=== PATIENT | female | born 1980 | race Caucasian/White ===

== ENCOUNTER 2023-12-03 14:27 | Emergency (ER) | payer BC, SELFPAY ==
[2023-12-03 14:33] VITALS: BP 156/95
--- NOTE | 2023-12-03 16:15 | ED.GENMED ---
History of Present Illness
General
Chief Complaint: Headache
Source: patient
Time Seen by Provider: 12/03/23 15:59
History of Present Illness
History of Present Illness:
This patient is a 43-year-old female whose had a headache for almost 2 weeks. It for started last week on Wednesday, gradual in onset, noticed in the bifrontal area, and then got progressively worse such that she described it as a 'migraine', typical
for her, by . She describes it as a 'pressure',. She took the usual medications that she takes with the migraine such as sumatriptan, Excedrin, etc. She states that these medications never worked for her anyway and she usually just needs
to wait it out. She went to the urgent care on Wednesday and was given steroids and Toradol without relief of symptoms. She saw her family doctor Wednesday who gave her the option of a CAT scan versus neurology follow-up. She was referred to the
emergency department today for a CAT scan by her primary care doctor, as per patient, after recognizing that a specific referral was not needed. Patient denies recent trauma or falls, neck pain or stiffness, fever, chills, photophobia, rash,
nausea, vomiting, change in vision, change in speech, change in balance. The headache is bifrontal, nonradiating, and has been improving. Her last menstrual cycle began 2 weeks ago.
Past History
Past History
ED Past Medical History: Other (ADHD, 'heartburn', migraines, endometriosis)
Social History
Tobacco: Non-smoker
Drug: None
Personal: Single
Living: alone
Phy Exam
Physical Exam
Physical Exam:
GENERAL: Alert , in no apparent distress
EYE: pupils equal and reactive, EOMI, no nystagmus, no photophobia
NECK: Supple, no significant adenopathy.
ENT: o/p clr, mmm.
CARDIAC: Regular rate and rhythm .
LUNGS: Clear breath sounds bilaterally, no acute respiratory distress,
ABDOMEN: Soft, without focal tenderness, no r/g, no cvat
NEUROLOGICAL: Alert and oriented, no focal neuro deficits, motor 5/5, sens intact, fundoscopic wnl, visual rizzo intact, gait wnl, Cranial nerves II through XII intact, [id number] normal
SKIN: Warm and dry, skin intact.
MUSCULOSKELETAL: No edema, well perfused.
PSYCH: Normal and appropriate interaction.
Course
Orders/Labs/Results
Orders:
Orders
12/03/23 16:14
CT Head W/o Iv Contrast Urgent
Comment:
Reason For Exam: devlin
Vital Signs
Initial and Last Documented VS:
Initial Vital Signs
Temp Pulse Resp BP Pulse Ox
98.2 F 100 18 156/95 99
12/03/23 14:33 12/03/23 14:33 12/03/23 14:33 12/03/23 14:33 12/03/23 14:33
Last Documented Vital Signs
Temp Pulse Resp BP Pulse Ox
98.2 F 100 18 156/95 99
12/03/23 14:33 12/03/23 14:33 12/03/23 14:33 12/03/23 14:33 12/03/23 14:33
Update Note
Update Note:
Patient presents to the Emergency Department with hA
Number and Complexity of Problems Addressed at the Encounter
� Chronic conditions affecting care:
� Acute Exacerbation and/or Progression of Chronic Illness:
� Differential Diagnosis includes: but not limited to migraine, tension devlin, nonspec cephalgia, hypertension related h/a, etc. etc.
Amount and/or Complexity of Data to be Reviewed and Analyzed
� I performed an independent evaluation of and my interpretation is:
EKG:
CT: Vanessa read IMPRESSION:
1. No CT evidence for acute intracranial disease.
2. 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
Xrays:
Laboratory Studies:
Other:
� Review of other/old records reveals:
� Clinical information was obtained by an independent historian:
� Prescriptions/Medications Considered but not given:
� Further testing considered but not performed:
Risk of Complications and/or Morbidity or Mortality of Patient Management
� Social determinants of health affecting care:
� Discussion with other providers (PCP, Hospitalists, Consultants, etc):
� Escalation of care including admission/observation vs risk of discharge considerePatient overall well-appearing. She declines medication for pain at this time.
[address] with incidental finding, pt made aware. encourage neuro f/u. d/w pt import of f/u and raseons to rted. do not identify 'red flag' findings in hphx to suggest more worrisome etiology, ex not sudden onset, no worst of life, no infectious
findings, neuro examnl, etc. Suspect migraine related.
ED Attending Note
-
Portions of this chart may have been created with voice recognition software.� Occasional wrong word or��sound alike� substitutions may have occurred due to the inherent limitations of voice recognition software.
Discharge Plan
Departure
Patient Disposition: Home (Routine Discharge)
Date of Disposition: 12/03/23
Time of Disposition: 16:51
Patient with high blood pressure during this ER visit?: Yes
Condition: Good
Discharge Problem:
Headache
Instructions: Migraines (DC), BLOOD PRESSURE
Activity Restrictions/Additional Instructions:
PLEASE SEE YOUR DOCTOR IN CLOSE FOLLOW UP. IF YOU DEVELOP DIZZINESS, FEVER, NECK PAIN, INCREASING/NEW/PERSISTENT HEADACHE, VOMITING, CHANGE IN VISION/SPEECH OR BALANCE, OR OTHER WORRISOME SIGNS, GO TO THE ER IMMEDIATELY!
Interventions
Interventions:
*Risk Screen - Suicide Last Done: 12/03/23 14:29
*General Assessment Last Done: 12/03/23 14:33
Discharge Date and Time
Print Language: CZECH
[2023-12-03 18:00] VITALS: BP 133/90
[2023-12-03 18:20] VITALS: BP 133/90
== END 2023-12-03 18:20 | disposition home or self-care (01) ==
LOC: EMR 14:27
PROVIDERS: EMERGENCY PHYSICIAN Emergency Medicine; FAMILY PHYSICIAN Nurse Practitioner Family
DX: R51.9 Headache, unspecified (principal); F90.9 Attention-deficit hyperactivity disorder, unspecified type; N80.9 Endometriosis, unspecified
CPT/HCPCS: 99284; 70450

== ENCOUNTER 2024-04-09 19:28 | Emergency (ER) | payer BC, SELFPAY ==
[2024-04-09 19:32] VITALS: BP 132/98
[2024-04-09 20:25] VITALS: BMI 26.3
[2024-04-09 20:52] LABS: COVID-19 Antigen Negative (Negative)
--- NOTE | 2024-04-09 20:55 | ED.GENMED ---
History of Present Illness
<STACIE Adams - Last Filed: 04/09/24 21:12>
General
Chief Complaint: Headache
Source: patient
Exam Limitations: none
Time Seen by Provider: 04/09/24 20:42
History of Present Illness
History of Present Illness:
This is a 43 year old female that comes in with c/o headache. States that she started with a migraine 3 days ago and she just can't get rid of this. States that she started to feel sick on Wednesday with a sore throat, cough and sneezing, runny nose
ad her ear hurt. States that yesterday she was freezing and also today. States that her chest feels heavy and that her Migraines have been ramping up over the past year. States that right now it is across the forehead. States that she has felt
nauseated with the headache and lightheaded. Denies any fever, chills, chest pain, SOB, abd pain, vomiting, diarrhea, urinary burning.
Past History
<STACIE Adams - Last Filed: 04/09/24 21:12>
Past History
ED Past Medical History: Hypercholesterolemia, Psychiatric (Depression) and Other (ADHD, 'heartburn', migraines, endometriosis)
ED Past Surgical History: None
Social History
Tobacco: Non-smoker
Alcohol: None
Drug: None
Personal: Single
Living: alone
Review of Systems
<STACIE Adams - Last Filed: 04/09/24 21:12>
Review of Systems
All Other Systems: ROS reviewed and negative except as documented in HPI and ROS
Constitutional: Reports no symptoms; Denies fever or chills
EENT: Reports no symptoms
Respiratory: Reports cough; Denies trouble breathing
Cardiac: Reports no symptoms; Denies chest pain
ABD/GI: Reports nausea and vomiting; Denies abdominal pain or diarrhea
: Reports no symptoms; Denies dysuria, frequency or urgency
Musculoskeletal: Reports no symptoms
Skin: Reports no symptoms
Neurological: Reports headache and other (Lightheaded); Denies dizzy
Psychiatric: Reports no symptoms
Phy Exam
<STACIE Adams - Last Filed: 04/09/24 21:12>
General Physical Exam
General Presentation: no apparent distress
General age: appears stated age
General Skin: warm and dry
General Habitus: normal
General Mental: alert
General Hydration: appears well hydrated
ENT Exam
ENT Exam: TM's normal, pharynx normal and neck supple
Eye Exam
Eye Exam: EOMI
Cardiovascular Exam
Cardiovascular Exam: regular rate/rhythm, no edema, no murmur and normal peripheral pulses
Pulmonary Exam
Pulmonary Exam: lungs clear, no respiratory distress, no rales, chest non tender, no crackles, no rhonchi, no wheezing and no cough
Gastrointestinal Exam
Gastrointestinal Exam: normal bowel sounds, non tender, soft, no organomegaly, no pulsatile mass and non distended
Musculoskeletal Exam
Musculoskeletal Exam: full ROM and no edema
Skin Exam
Skin Exam: normal color, warm/dry, no rash and no petechia
Psychiatric Exam
Psychiatric Exam: normal mood/affect
Course
<STACIE Adams - Last Filed: 04/09/24 21:12>
Orders/Labs/Results
Orders:
Orders
04/09/24 20:31
COVID-19 Antigen Urgent
Source: Nasal Swab
Influenza A+B Rapid Molecular Urgent
LISBET Source: Nasal Swab
Specimen Description:
04/09/24 21:03
Acetaminophen [Tylenol] 1,000 mg PO NOW STA
Ibuprofen [Motrin] 600 mg PO NOW STA
COVID negative. Influenza A positive
Vital Signs
Initial and Last Documented VS:
Initial Vital Signs
Temp Pulse Resp BP Pulse Ox
99.9 F 110 20 132/98 100
04/09/24 19:32 04/09/24 19:32 04/09/24 19:32 04/09/24 19:32 04/09/24 19:32
Last Documented Vital Signs
Temp Pulse Resp BP Pulse Ox
99.9 F 110 20 132/98 100
04/09/24 19:32 04/09/24 19:32 04/09/24 19:32 04/09/24 19:32 04/09/24 19:32
<Savannah Vasquez MD - Last Filed: 04/09/24 21:18>
Orders/Labs/Results
Orders:
Orders
04/09/24 20:31
COVID-19 Antigen Urgent
Source: Nasal Swab
Influenza A+B Rapid Molecular Urgent
LISBET Source: Nasal Swab
Specimen Description:
04/09/24 21:03
Acetaminophen [Tylenol] 1,000 mg PO NOW STA
Ibuprofen [Motrin] 600 mg PO NOW STA
Vital Signs
Initial and Last Documented VS:
Initial Vital Signs
Temp Pulse Resp BP Pulse Ox
99.9 F 110 20 132/98 100
04/09/24 19:32 04/09/24 19:32 04/09/24 19:32 04/09/24 19:32 04/09/24 19:32
Last Documented Vital Signs
Temp Pulse Resp BP Pulse Ox
99.9 F 110 20 132/98 100
04/09/24 19:32 04/09/24 19:32 04/09/24 19:32 04/09/24 19:32 04/09/24 19:32
<STACIE Adams - Last Filed: 04/09/24 21:12>
MDM/Problems Addressed
Differential Diagnosis Includes:
Migraines, temporal arteritis, Influenza A
MDM/Problems Addressed:
This is a 43 year old female that comes in with c/o headache. states that this started on Wednesday with sore throat, cough, sneezing, Runny nose and ear pain. Stats that she is nauseated.
Will check COVID and Influenza.
Explained to patient that she has Influenza A. This is a virus and is most likely the cause of your Headache. Encouraged patient to increase her water intake to 8-8oz glasses daily. Use Tylenol and Ibuprofen for pain. Follow up with the family
doctor. Return with any concerns.
Chronic conditions affecting care:
Headaches
Acute Exacerbation and/or Progression of Chronic Illness:
Headaches,
<STACIE Adams - Last Filed: 04/09/24 21:12>
*Pulse Oximetry
Patient hypoxic: no
*EKG
Interpreted by ED Provider?: NA
Rate: EKG- N/A
*Day Care Aide Interpretation
Rate: Day Care Aide- N/A
*Critical Care Note
Total Time (30-74mins, 75-104mins- exclusive of procedures): Not Applicable
ED Attending Note
<STACIE Adams - Last Filed: 04/09/24 21:12>
-
Portions of this chart may have been created with voice recognition software.� Occasional wrong word or��sound alike� substitutions may have occurred due to the inherent limitations of voice recognition software.
<Savannah Vasquez MD - Last Filed: 04/09/24 21:18>
ED Attending Note
Patient seen and examined by attending physician: Yes
I performed the substantive portion of visit, reviewed & personally made and approve the management plan that is documented in note by myself or BRADY.: Yes
ED Attending Note:
43-year-old female with a history of migraines with complaints of right-sided headache, chills, cough, body aches since Wednesday. Noted to be flu positive here. No meningismus on exam, patient awake alert generally comfortable. Declines migraine
meds here, also declines Tamiflu. Patient to be given Motrin and Tylenol.
Discharge Plan
Departure
Patient Disposition: Home (Routine Discharge)
Date of Disposition: 04/09/24
Time of Disposition: 21:07
Patient with high blood pressure during this ER visit?: Yes
Condition: Good
Covid-19: Negative COVID-19
Discharge Problem:
Influenza A
Instructions: Flu in adults - ED discharge instructions, BLOOD PRESSURE
Prescriptions:
No Action
sertraline 100 mg Tablet
100 mg PO DAILY
lisdexamfetamine [Vyvanse] 60 mg Capsule
60 mg PO DAILY
Referrals:
Natalee Ma PA [Family Provider] - Call in 1-3 days for appt
Activity Restrictions/Additional Instructions:
As discussed, you have Influenza A. This is the most likely reason for your headache. Please increase your water intake to 8-8oz glasses daily. Please use Tylenol 650 mg very 6 hours for pain and alternate with Ibuprofen 600mg every 6 hours with
food. Follow up with the family doctor for recheck. IF YOU HAVE ANY OTHER CONCERNS PLEASE RETURN TO THE EMERGENCY ROOM
Interventions
Interventions:
*Risk Screen - Suicide Last Done: 04/09/24 19:33
*General Assessment Last Done: 04/09/24 20:25
*Neglect/Abuse Screening Last Done: 04/09/24 19:33
*ED COVID-19 Vaccine History Last Done: 04/09/24 19:33
ED- Neurological Assessment Last Done: 04/09/24 20:33
ED- Pulmonary Assessment Last Done: 04/09/24 20:33
Discharge Date and Time
Print Language: [place]THER[place] IRISH
[2024-04-09] MEDS: MOTRIN 600 MG PO (21:14)
[2024-04-09] MEDS: TYLENOL 1000 MG PO (21:15)
[2024-04-09 21:17] VITALS: BP 148/81
== END 2024-04-09 21:20 | disposition home or self-care (01) ==
LOC: EMR 19:28
PROVIDERS: Registered Nurse; EMERGENCY PHYSICIAN Emergency Medicine; FAMILY PHYSICIAN Nurse Practitioner Family
DX: J10.1 Influenza due to other identified influenza virus with other respiratory manifestations (principal); R51.9 Headache, unspecified; R07.89 Other chest pain; R11.2 Nausea with vomiting, unspecified; R42 Dizziness and giddiness; H92.09 Otalgia, unspecified ear; Z11.52 Encounter for screening for COVID-19; R03.0 Elevated blood-pressure reading, without diagnosis of hypertension; E78.00 Pure hypercholesterolemia, unspecified; F32.A Depression, unspecified; F90.9 Attention-deficit hyperactivity disorder, unspecified type; Z88.1 Allergy status to other antibiotic agents
CPT/HCPCS: 99283; 87502; 87811

== ENCOUNTER → 2025-01-22 17:48 | Outpatient (REF) | payer BC, SELFPAY | LOC: RAD 17:48 | PROVIDERS: FAMILY PHYSICIAN Nurse Practitioner Family | DX: R10.20 Pelvic and perineal pain unspecified side (principal); N93.0 Postcoital and contact bleeding | CPT/HCPCS: 76830; 76856 ==

== ENCOUNTER 2025-01-23 17:26 | Emergency (ER) | payer BC, SELFPAY ==
[2025-01-23 17:37] VITALS: BP 136/83
[2025-01-23 18:25] LABS: Urine Character Clear (Clear)
[2025-01-23 18:26] LABS: Hematocrit 37.8 % (37.0-47.0); Hemoglobin 12.3 g/dL (12.0-16.0); Mean Corp Hgb Conc. 32.5 g/dL (33.0-37.0); Mean Corpuscular Volume 84.0 fL (81.0-99.0); Nucleated Red Blood Cells % 0 %; Platelet Count 437 10^3/uL (130-400); Red Cell Dist. Width 13.6 % (11.5-14.5)
[2025-01-23 18:32] LABS: Urine Red Blood Cell >100 /HPF (0-2); Urine Squamous Cell 16-20 /LPF (Few); Urine White Cell 0-2 /HPF (0-5)
[2025-01-23 18:42] LABS: ALT (SGPT) 12 U/L (0-35); AST (SGOT) 18 U/L (14-36); Albumin 4.6 g/dl (3.5-5.0); Alkaline Phosphatase 79 U/L (38-126); Blood Urea Nitrogen 13 mg/dl (7-17); Calcium 9.6 mg/dl (8.4-10.2); Carbon Dioxide 25 mmol/L (22-30); Chloride 107 mmol/L (98-107); Glucose 99 mg/dl (70-99); Lipase 115 U/L (23-300); Potassium 4.4 mmol/L (3.5-5.1); Sodium 140 mmol/L (135-145); Total Protein 7.4 g/dl (6.3-8.2); eGFR > 60.00
[2025-01-23] MEDS: TORADOL 15 MG IV (20:27)
--- NOTE | 2025-01-23 20:43 | ED.GENMED ---
History of Present Illness
General
Chief Complaint: Abdominal Pain
Time Seen by Provider: 01/23/25 19:33
History of Present Illness
History of Present Illness:
44-year-old female with history of endometriosis presenting for 2 weeks of abdominal pain. Patient reports the pain has been generalized, saw her decision unit rn last week. She had a pelvic ultrasound completed yesterday. Results were unremarkable,
small intramural fibroid in the uterus and small cystic mass in the right ovary. Patient notes that today the pain was more left-sided, urine dark in color. Does note history of kidney stones in the past. Reports history of laparoscopic surgery
for endometriosis, otherwise denies any abdominal surgeries. Denies fever. Denies nausea or vomiting. Denies chest pain or difficulty breathing. Denies dysuria. Denies any vaginal discharge. Denies additional acute medical complaints
Past History
Past History
ED Past Medical History: Hypercholesterolemia, Psychiatric (Depression) and Other (ADHD, 'heartburn', migraines, endometriosis)
ED Past Surgical History: None
Social History
Tobacco: Non-smoker
Alcohol: None
Drug: None
Personal: Single
Living: alone
Phy Exam
Physical Exam
Physical Exam:
General: Well-appearing, no clinical signs of dehydration, nontoxic and in no acute distress
HEENT: protecting airway
Neck: appears supple
CV: Normal heart rate, regular rhythm
Resp: No accessory muscle use, no increased work of breathing, lungs clear to auscultation bilaterally
Abd: Soft and non-distended, generalized nonfocal tenderness
Extremities: No deformities, no swelling
Neuro: alert, no focal neurologic deficit
: deferred
Rectal: deferred
Psych: Normal affect
Skin: Intact
Course
Orders/Labs/Results
Orders:
Orders
01/23/25 17:58
Complete Blood Count/With Diff Urgent
Comprehensive Metabolic Panel Urgent
HCG, Urine Qualitative Screen Urgent
Date Specimen was Collected: 01/23/25
Time Specimen was Collected: 17:41
Comment: ADD ON
Lipase Urgent
Urinalysis Reflex To Culture Urgent
Date Specimen was Collected: 01/23/25
Time Specimen was Collected: 17:41
Urine Microscopic Reflex Cult Urgent
Urine Culture Urgent
LISBET Source: U
Specimen Description:
Date Specimen was Collected: 01/23/25
Time Specimen was Collected: 17:41
01/23/25 20:18
CT Abd/pelvis W Iv Cont Urgent
Comment:
Reason For Exam: generalized pain x 2 weeks, left sided today
Ketorolac [Toradol] 15 mg IV NOW STA
01/23/25 20:40
Add On- LAB Urgent
Tests Added?: urine
Abnormal Lab Results
01/23/25
17:58
MCHC 32.5 L g/dL
(33.0-37.0)
Plt Count 437 H 10^3/uL
(130-400)
Absolute Monos (auto) 0.8 H 10^3/uL
(0.1-0.6)
Monocytes % 10.9 H %
(1.7-9.3)
Ur Occult Blood Reflex 4+ A
(Negative)
Urine RBC >100 A /HPF
(0-2)
Urine Bacteria (Reflex) Many A
(Negative)
Urine Albumin (Reflex) 1+ A
(Neg - Trace)
01/23/25 17:58
01/23/25 17:58
Vital Signs
Initial and Last Documented VS:
Initial Vital Signs
Temp Pulse Resp BP Pulse Ox
98.5 F 95 15 136/83 100
01/23/25 17:37 01/23/25 17:37 01/23/25 17:37 01/23/25 17:37 01/23/25 17:37
Last Documented Vital Signs
Temp Pulse Resp BP Pulse Ox
98.5 F 60 18 136/83 100
01/23/25 17:37 01/23/25 21:30 01/23/25 21:30 01/23/25 21:30 01/23/25 21:30
MDM/Problems Addressed
MDM/Problems Addressed:
44-year-old female with history of endometriosis presenting for generalized abdominal pain for 2 weeks. Vital signs on arrival are normal.
On exam patient resting comfortably, nontoxic. Reassuring examination with generalized nonfocal tenderness. Does note today that pain was more left-sided, history of kidney stones in the past. Ultrasound reviewed from yesterday, no acute
abnormality to explain patient's discomfort. Labs obtained prior to my assessment, unremarkable. Urine does show some RBCs, so again kidney stone is a consideration. Given duration of symptoms, will obtain CT abdomen pelvis for further
assessment. Toradol administered for pain.
23:00 -CT negative for any acute process. Noted to have RBCs in the urine. On further questioning, patient does note some hesitancy and some frequency of urine. Given her symptoms, we will treat as possible UTI. Otherwise feel stable for
discharge with continued outpatient follow-up. Return precautions discussed and patient verbalized understanding
*Pulse Oximetry
SaO2: 100
Oxygen Mode of Delivery: Room air
Patient hypoxic: no
*Critical Care Note
Total Time (30-74mins, 75-104mins- exclusive of procedures): Not Applicable
ED Attending Note
-
Portions of this chart may have been created with voice recognition software.� Occasional wrong word or��sound alike� substitutions may have occurred due to the inherent limitations of voice recognition software.
Discharge Plan
Departure
Prescriptions:
No Action
sertraline 100 mg Tablet
100 mg PO DAILY
lisdexamfetamine [Vyvanse] 60 mg Capsule
60 mg PO DAILY
Referrals:
Natalee Ma PA [Family Provider, Family Practice]
Interventions
Interventions:
*Risk Screen - Suicide Last Done: 01/23/25 17:39
*General Assessment Last Done: 01/23/25 17:39
*Neglect/Abuse Screening Last Done: 01/23/25 17:39
*ED COVID-19 Vaccine History Last Done: 01/23/25 17:39
*ED Influenza Vaccine History Last Done: 01/23/25 17:39
XA-[id number] Assessment Last Done: 01/23/25 20:30
Discharge Date and Time
Print Language: SCOTTISH
[2025-01-23 21:01] LABS: HCG, Urine Qualitative Screen Negative
[2025-01-23 21:30] VITALS: BP 136/83
[2025-01-23] MEDS: KEFLEX 500 MG PO (23:15)
== END 2025-01-23 23:28 | disposition home or self-care (01) ==
LOC: EMR 17:26
PROVIDERS: Emergency Medicine; EMERGENCY PHYSICIAN Student in an Organized Health Care Education/Training Program; FAMILY PHYSICIAN Nurse Practitioner Family
DX: R10.84 Generalized abdominal pain (principal); D25.1 Intramural leiomyoma of uterus; N83.202 Unspecified ovarian cyst, left side; E78.00 Pure hypercholesterolemia, unspecified; F32.A Depression, unspecified; F90.9 Attention-deficit hyperactivity disorder, unspecified type; Z87.442 Personal history of urinary calculi
CPT/HCPCS: 99284; 96374; 74177; 80053; 81003; 81015; 81025; 83690; 85025; 87086; Q9967